=== PATIENT | male | born 1960 ===

== ENCOUNTER → 2024-07-07 13:13 | Outpatient (REF) | payer BC, SELFPAY | LOC: RCS 13:13 | PROVIDERS: ATTENDING PHYSICIAN Internal Medicine Cardiovascular Disease | DX: R06.09 Other forms of dyspnea (principal) | CPT/HCPCS: 93017; 93350 ==

== ENCOUNTER → 2024-07-15 15:36 | Outpatient (REF) | payer BC, SELFPAY | LOC: HWRCS 15:36 | PROVIDERS: ATTENDING PHYSICIAN Internal Medicine Cardiovascular Disease | DX: R06.09 Other forms of dyspnea (principal) | CPT/HCPCS: 93306 ==

== ENCOUNTER → 2024-07-28 14:23 | Outpatient (REF) | payer BC, SELFPAY | LOC: HWRAD 14:23 | PROVIDERS: ATTENDING PHYSICIAN Internal Medicine Critical Care Medicine | DX: R93.89 Abnormal findings on diagnostic imaging of other specified body structures (principal) | CPT/HCPCS: 71046 ==

== ENCOUNTER 2024-08-15 07:51 | Emergency (ER) | payer BC, SELFPAY ==
[2024-08-15 07:55] VITALS: BP 200/110
--- NOTE | 2024-08-15 08:50 | ED.GENMED ---
History of Present Illness
General
Chief Complaint: Back Pain
Source: patient
Exam Limitations: none
Time Seen by Provider: 08/15/24 08:27
History of Present Illness
History of Present Illness:
64yoM with no known past medical history presenting for evaluation of back pain. Symptoms began about 1 week ago. Patient denies any trauma or heavy lifting although he was fishing the day before his symptoms starting. He states he was only
scouting and did not actually fish. Patient reports pain in his left lower back and hip. Pain was initially mild but has been gradually worsening. Pain radiates to the left knee and thigh. He also reports some tingling on the outside of his left
foot and states it feels like his left leg is weak. The pain is making it difficult for him to sleep at night. He was seen by a chiropractor twice in the past 2 days and he feels that the adjustments made it worse. He was also seen at urgent care
yesterday and was told to go to the ED. Patient denies any fevers, urinary retention, incontinence, saddle anesthesia. No prior history of back surgeries.
Phy Exam
Physical Exam
Physical Exam:
Appears uncomfortable, non-toxic
General Physical Exam
General Presentation: well appearing
General Skin: warm and dry
General Habitus: normal
General Mental: alert
ENT Exam
ENT Exam: normocephalic
Neurological Exam
Neurological Exam: alert and other (4/5 strength with L hip flexion)
Eusebia Coma Scale
Eye Opening: Spontaneous
Verbal Response: Oriented
Motor Response: Obeys Commands
GCS Total Score: 15
Musculoskeletal Exam
Musculoskeletal Exam: other (No tenderness to palpation of the lumbar region. There is pain elicited with movement of the back. ROM of hip and knee mildly decreased. 2+ DP pulse.)
Skin Exam
Skin Exam: normal color and warm/dry
Psychiatric Exam
Psychiatric Exam: normal mood/affect
Course
Orders/Labs/Results
Orders:
Orders
08/15/24 08:48
Oxycodone/Acetaminophen [Percocet 5/325] 1 tablet PO NOW STA
CR Hip - LT w/wo Pel 2-3 Vw* Urgent
Comment:
Reason For Exam: L hip pain
Include a pelvis x-ray?: Yes
CR Knee - Left 4 Or More View* Urgent
Comment:
Reason For Exam: L knee pain
CR Lumbar Spine Comp Min 4 Vw* Urgent
Comment:
Reason For Exam: low back pain
08/15/24 08:49
Lidocaine [Lidocaine 4% Patch] 1 patch TOPICAL ONCE ONE
Apply Lidocaine patch(s) to:: low back
08/15/24 10:08
CT Lower Ext W/o Iv Cont Lt Urgent
Comment:
Reason For Exam: L knee pain, abnormal x-ray
08/15/24 10:17
Ketorolac [Toradol] 30 mg IM NOW STA
Oxycodone/Acetaminophen [Percocet 5/325] 1 tablet PO NOW STA
08/15/24 11:13
Crutches-Treatment ONCE
Knee Immobilizer Left-Treatmen ONCE
Vital Signs
Initial and Last Documented VS:
Initial Vital Signs
Temp Pulse Resp BP Pulse Ox
98.1 F 110 16 200/110 98
08/15/24 07:55 08/15/24 07:55 08/15/24 07:55 08/15/24 07:55 08/15/24 07:55
Last Documented Vital Signs
Temp Pulse Resp BP Pulse Ox
98.1 F 110 16 159/98 98
08/15/24 07:55 08/15/24 07:55 08/15/24 11:00 08/15/24 11:00 08/15/24 11:00
MDM/Problems Addressed
Differential Diagnosis Includes:
64yoM here with L lower back/hip pain that radiates to the L knee x 1 week. Seen by chiropractor 2x. No overt trauma. No red flags in history including no saddle anesthesia, incontinence, or fevers. He is hypertensive on arrival. 4/5 strength with L
hip flexion noted. 2+ DP pulse present. No skin changes or tenderness to palpation of the back. Differential diagnosis includes but is not limited to: lumbar radiculopathy, sciatica, muscular strain, fracture
Initial ED plan: Check lumbar spine, L hip, and L knee x-rays. Percocet and lidocaine patch for pain.
*Critical Care Note
Total Time (30-74mins, 75-104mins- exclusive of procedures): Not Applicable
Update Note
Update Note:
Lumbar x-rays and hip x-rays negative for fractures. Knee x-rays show a subtle lucency within the proximal medial tibia. A follow-up CT was ordered which reveals 'Suspect impacted tibial plateau fracture along the central aspect of the medial tibial
plateau with approximately 4 mm of depression. No overt fracture lines identified extending to the medial or lateral tibial cortices.' Case discussed with orthopedics (Dr. Amezquita) who recommends knee immobilizer, NWB, and outpatient f/u. Unclear if
this is truly a fracture as he has not had any trauma and is ranging the knee fairly well. Recommendations discussed with patient. Crutches and knee immobilizer provided. Prescriptions given for prednisone and oxycodone. Advised f/u with orthopedics
and pain management. He was discharged in stable condition.
ED Attending Note
-
Portions of this chart may have been created with voice recognition software.� Occasional wrong word or��sound alike� substitutions may have occurred due to the inherent limitations of voice recognition software.
Discharge Plan
Departure
Patient Disposition: Home (Routine Discharge)
Date of Disposition: 08/15/24
Time of Disposition: 11:36
Patient with high blood pressure during this ER visit?: Yes
Discharge Problem:
Acute pain of left knee, Acute low back pain
Instructions: Low Back Pain (DC)
Prescriptions:
New
prednisone 50 mg tablet
50 mg PO DAILY Qty: 5 0RF
oxycodone 5 mg tablet
5 mg PO Q6H PRN (Reason: Pain) Qty: 12 0RF
Referrals:
Isrrael Khan MD [Active] -
Florentino Amezquita MD [Active] -
UNKNOWN - PT DOES,NOT KNOW [Family Provider] -
Activity Restrictions/Additional Instructions:
Wear knee immobilizer and do not bear weight on your left leg.
Take prednisone as prescribed. Use lidocaine patches daily (12 hours on, 12 hours off). Take Tylenol and ibuprofen as needed. Take oxycodone only as needed for severe breakthrough pain.
Please call tomorrow to schedule a follow-up with orthopedics and pain management. Return to the ER with any new or worsening symptoms.
Interventions
Interventions:
*Risk Screen - Suicide Last Done: 08/15/24 07:55
*General Assessment Last Done: 08/15/24 09:23
*Neglect/Abuse Screening Last Done: 08/15/24 07:55
ED- Fall Risk Assessment Last Done: 08/15/24 09:23
*ED COVID-19 Vaccine History Last Done: 08/15/24 09:23
*Nursing Disposition Last Done: 08/15/24 12:49
ED-Musculoskeletal Assessment Last Done: 08/15/24 09:25
Discharge Date and Time
Discharge Date/Time: 08/15/24 12:50
Print Language: INDONESIAN
[2024-08-15] MEDS: LIDOCAINE 4% PATCH 1 PATCH TOPICAL (09:14)
[2024-08-15] MEDS: PERCOCET 5/325 1 TABLET PO ×2 (09:14→10:55)
[2024-08-15] MEDS: TORADOL 30 MG IM (10:56)
[2024-08-15 11:00] VITALS: BP 159/98
== END 2024-08-15 12:50 | disposition home or self-care (01) ==
LOC: EMR 07:51
PROVIDERS: EMERGENCY PHYSICIAN Emergency Medicine
DX: M54.50 Low back pain, unspecified (principal); M25.562 Pain in left knee
CPT/HCPCS: 99284; 96374; 72110; 73502; 73564; 73700

== ENCOUNTER → 2024-08-18 12:46 | Outpatient (REF) | payer BC, SELFPAY | LOC: HWRAD 12:46 | PROVIDERS: ATTENDING PHYSICIAN Internal Medicine Critical Care Medicine; FAMILY PHYSICIAN Internal Medicine | DX: R93.89 Abnormal findings on diagnostic imaging of other specified body structures (principal) | CPT/HCPCS: 71250 ==